=== PATIENT | male | born 1985 | race Caucasian/White ===

== ENCOUNTER → 2017-01-02 | Outpatient (CLI) | payer OTHER ==
--- NOTE | 2017-01-05 14:28 | RAD ---
DATE: 01/02/2017 EXAM: DIGITAL DIAGNOSTIC BILATERAL, BREAST RIGHT, male breast HISTORY: Right breast lump COMPARISON: None available This study was interpreted with the benefit of Computerized Aided Detection (CAD ). FINDINGS: This is a male breast. There is prominent appearing the retroareolar breast tissue on the right likely gynecomastia. An intramammary lymph node identified in the right breast. Ultrasound of the right breast demonstrates prominent breast tissue in the right retroareolar region. IMPRESSION: Unilateral right gynecomastia. BI-RADS CATEGORY: 2 BENIGN FINDING RECOMMENDED FOLLOW-UP: Clinical follow-up is recommended. Mammography is a sensitive method for finding small breast cancers, but it does not detect them all and is not a substitute for careful clinical examination. A negative mammogram does not negate a clinically suspicious finding and should not result in delay in biopsying a clinically suspicious abnormality. "Our facility is accredited by the [employer] Mammography Program." [employer]
== END | disposition home or self-care (01) ==
LOC: US 13:48
PROVIDERS: ATTEND Nurse Practitioner Family
DX: N63 Unspecified lump in breast (principal)
CPT/HCPCS: 76641; G0204; 77066